=== PATIENT | female | born 1960 | race African-American/Black ===

== ENCOUNTER 2017-03-01 07:56 | Emergency (ER) | payer MEDICARE, MEDICAID ==
[~2017-03-01] VITALS: Ht 147.3 cm; Wt 82.0 kg
[~2017-03-01 07:56] MED LIST: ASPI-1159 PO; Benazepril Hcl PO; Benzocaine/Menth/Cetylpyrd Cl MM; COR3 PO; FURO-152 PO; LEVO500T2 PO; METF500T4 PO; P20 PO; PRED5TAB48 PO; SIMV20TA6 PO; SPIR25TA4 PO
[2017-03-01] MEDS ORDERED: KETOROLAC 30MG/ML VIAL IV STA (08:44)
[2017-03-01] MEDS ORDERED: SODIUM CHLORIDE 0.9% 1000ML BAG (SEPSIS BOLUS) IV ONE (08:45)
[2017-03-01 09:04] LABS: BASOPHILS % 0.7 % (0.0-2.0); EOSINOPHILS % 1.2 % (0.0-5.0); LYMPHOCYTES % 32.2 % (20.0-50.0); MEAN CORPUSCULAR HEMOGLOBIN 22.8 pg (28.0-32.0); MEAN CORPUSCULAR VOLUME 72.5 fL (81.0-99.0); MEAN PLATELET VOLUME 9.1 fl (7.4-10.4); MONOCYTES % 13.5 % (2.0-8.0); NEUTROPHILS % 52.4 % (40.0-76.0); PLATELET 156 x1000/uL (130-400); RED BLOOD CELL COUNT 4.83 mill/uL (4.2-5.4); RED CELL DISTRIBUTION WIDTH 15.4 % (11.6-14.6)
[2017-03-01 09:12] LABS: PROTHROMBIN TIME 10.2 sec (9.4-11.6)
[2017-03-01 09:23] LABS: CARBON DIOXIDE 27 mEq/L (21-32); CHLORIDE 107 mEq/L (98-107)
[2017-03-01 11:50] LABS: CLARITY URINE CLOUDY (CLEAR); COLOR URINE YELLOW (YELLOW); KETONES URINE TRACE (NEGATIVE); LEUKOCYTE ESTERASE URINE 1+ (NEGATIVE); NITRITE URINE NEGATIVE (NEGATIVE); OCCULT BLOOD URINE NEGATIVE (NEGATIVE); PH URINE 5.5 (4.5-8.0); PROTEIN URINE 2+ (NEGATIVE); SPECIFIC GRAVITY URINE 1.029 (1.005-1.030)
[2017-03-01] MEDS ORDERED: LEVOFLOXACIN 500MG PREMIX 100 ML IV ONE (12:30)
[2017-03-01 13:00] VITALS: BP 142/85
== END 2017-03-01 14:51 | disposition home or self-care (01) ==
LOC: ER 08:15
DX: J06.9 Acute upper respiratory infection, unspecified (principal); N39.0 Urinary tract infection, site not specified; J44.9 Chronic obstructive pulmonary disease, unspecified; I10 Essential (primary) hypertension; F41.9 Anxiety disorder, unspecified; E11.9 Type 2 diabetes mellitus without complications; Z79.82 Long term (current) use of aspirin
CPT/HCPCS: 36415; 71045; 80053; 81001; 83605; 85025; 85610; 87040; 87086; 93005; 96361; 96365; 96375; 99285; J1885; J1956; J7030

== ENCOUNTER 2018-11-29 13:33 | Inpatient (IN) | payer MEDICARE, MEDICAID ==
[~2018-11-29] VITALS: Ht 147.3 cm; Wt 52.6 kg
[~2018-11-29 13:33] MED LIST changes: -ASPI-1159 PO; +ASPI-1393 PO; +METF-414 PO; -METF500T4 PO; -SPIR25TA4 PO; +SPIR25TA6 PO
[2018-11-29] MEDS ORDERED: SODIUM CHLORIDE 0.9% 1,000 ML IV ONE (15:00)
[2018-11-29] MEDS ORDERED: KETOROLAC 15MG/ML VIAL IV ONE (15:00)
[2018-11-29 15:22] LABS: BASOPHILS % 0.7 % (0.0-2.0); EOSINOPHILS % 0.5 % (0.0-5.0); HEMATOCRIT. 41.9 % (36.0-48.0); HEMOGLOBIN. 13.3 g/dL (12.0-16.0); LYMPHOCYTES % 33.2 % (20.0-50.0); MEAN CORPUSCULAR HEMOGLOBIN 23.6 pg (28.0-32.0); MEAN CORPUSCULAR VOLUME 74.1 fL (81.0-99.0); NEUTROPHILS % 53.6 % (40.0-76.0); RED BLOOD CELL COUNT 5.66 mill/uL (4.2-5.4); RED CELL DISTRIBUTION WIDTH 16.2 % (11.6-14.6)
[2018-11-29 15:25] LABS: CHLORIDE 105 mEq/L (98-107)
[2018-11-29 15:45] LABS: CLARITY URINE CLOUDY (CLEAR); COLOR URINE DARK YELLOW (YELLOW); KETONES URINE TRACE (NEGATIVE); LEUKOCYTE ESTERASE URINE NEGATIVE (NEGATIVE); NITRITE URINE NEGATIVE (NEGATIVE); OCCULT BLOOD URINE NEGATIVE (NEGATIVE); PH URINE 5.5 (4.5-8.0); PROTEIN URINE 3+ (NEGATIVE); SPECIFIC GRAVITY URINE 1.034 (1.005-1.030)
[2018-11-29 15:46] LABS: MEAN PLATELET VOLUME 11.1 fl (7.4-10.4); PLATELET 125 x1000/uL (130-400)
[2018-11-29 17:00] VITALS: BP 124/72
[2018-11-29 17:31] VITALS: BP 124/72
[2018-11-29] MEDS ORDERED: INFLUENZA VIRUS VACCINE(AFLURIA) 0.5ML SYR IM ONE (18:30)
[2018-11-29] MEDS ORDERED: DOCUSATE SODIUM 100MG CAPSULE PO PRN (19:15)
[2018-11-29] MEDS ORDERED: NA PHOS,M-B/NA PHOS,DI-BA ENEMA 118ML PR PRN (19:15)
[2018-11-29] MEDS ORDERED: CLONIDINE 0.1MG TABLET PO PRN (19:15)
[2018-11-29] MEDS ORDERED: ACETAMINOPHEN 650MG/20.3ML UDC GT PRN (19:15)
[2018-11-29] MEDS ORDERED: MAGNESIUM/ALUMINUM HYDROXIDE/SIMETHICONE 30ML UDC PO PRN (19:15)
[2018-11-29] MEDS ORDERED: IPRATROPIUM/ALBUTEROL 0.5-3(2.5)MG/3ML NEB HHN PRN (19:15)
[2018-11-29] MEDS ORDERED: ONDANSETRON HCL 4MG/2ML INJ IV PRN (19:15)
[2018-11-29] MEDS ORDERED: HYDROCODONE/ACETAMINOPHEN 5/325MG TABLET PO PRN (19:15)
[2018-11-29] MEDS ORDERED: DIPHENHYDRAMINE 50MG/ML VIAL IV PRN (19:15)
[2018-11-29] MEDS ORDERED: ACETAMINOPHEN 650MG SUPP PR PRN (19:15)
[2018-11-29] MEDS ORDERED: ACETAMINOPHEN 325MG TABLET PO PRN (19:15)
[2018-11-29 20:00] VITALS: BP 125/73
[2018-11-29] MEDS ORDERED: DEXTROSE 50% WATER 50ML SYRINGE IV PRN (20:45)
[2018-11-29] MEDS: INSULIN LISPRO 100 UNITS/ML SUBCUT SCH (20:57)
[2018-11-29] MEDS: BLOOD SUGAR DIAGNOSTIC STRIP TEST SCH (20:57)
[2018-11-29] MEDS: ENOXAPARIN 40MG/0.4ML SYR SUBCUT SCH (20:58)
[2018-11-29] MEDS: SODIUM CHLORIDE 0.9% INJ 3ML FLUSH IVF SCH (21:04)
[2018-11-29] MEDS: ALBUTEROL (0.083%) 2.5MG/3ML NEB HHN SCH (22:10)
[2018-11-29] MEDS: GUAIFENESIN 200MG/10ML SUGAR FREE UDC PO PRN (23:19)
[2018-11-29 23:36] VITALS: BP 96/55
[2018-11-30 00:15] LABS: *BARBITURATES SCREEN URINE NEGATIVE (NEGATIVE); *BENZODIAZEPINES SCREEN URINE NEGATIVE (NEGATIVE); *COCAINE SCREEN URINE NEGATIVE (NEGATIVE); METHADONE URINE SCREEN NEGATIVE (NEGATIVE); OPIATES URINE SCREEN NEGATIVE (NEGATIVE); PHENCYCLIDINE URINE SCREEN NEGATIVE (NEGATIVE)
[2018-11-30 00:16] LABS: *AMPHETAMINES SCREEN URINE NEGATIVE (NEGATIVE); CANNABINOID URINE SCREEN NEGATIVE (NEGATIVE)
[2018-11-30 00:47] LABS: CREATINE KINASE 288 IU/L (26-192)
[2018-11-30 00:48] LABS: CREATINE KINASE MB FRACTION 1.5 ng/mL (0.5-3.6)
[2018-11-30] MEDS: ALBUTEROL (0.083%) 2.5MG/3ML NEB HHN SCH ×4 (02:40→21:25)
[2018-11-30 04:01] VITALS: BP 111/61
[2018-11-30] MEDS: SODIUM CHLORIDE 0.9% INJ 3ML FLUSH IVF SCH ×3 (06:30→22:46)
[2018-11-30] MEDS: INSULIN LISPRO 100 UNITS/ML SUBCUT SCH ×4 (06:41→20:36)
[2018-11-30] MEDS: BLOOD SUGAR DIAGNOSTIC STRIP TEST SCH ×4 (06:41→20:24)
[2018-11-30 06:49] LABS: HEMATOCRIT. 37.4 % (36.0-48.0); HEMOGLOBIN. 12.1 g/dL (12.0-16.0); MEAN CORPUSCULAR HEMOGLOBIN 23.9 pg (28.0-32.0); MEAN CORPUSCULAR VOLUME 73.9 fL (81.0-99.0); MEAN PLATELET VOLUME 11.9 fl (7.4-10.4); PLATELET 113 x1000/uL (130-400); RED BLOOD CELL COUNT 5.06 mill/uL (4.2-5.4); RED CELL DISTRIBUTION WIDTH 15.5 % (11.6-14.6)
[2018-11-30 08:07] VITALS: BP 116/65
[2018-11-30] MEDS: GUAIFENESIN 200MG/10ML SUGAR FREE UDC PO PRN ×3 (08:09→22:52)
[2018-11-30] MEDS: FUROSEMIDE 40MG/4ML VIAL IV SCH (08:10)
[2018-11-30] MEDS: METFORMIN HCL 500MG TABLET PO SCH (08:10)
[2018-11-30 08:34] LABS: CHLORIDE 106 mEq/L (98-107)
[2018-11-30 08:56] LABS: LDL CHOLESTEROL 83 mg/dL (5-100)
[2018-11-30 08:58] LABS: CREATINE KINASE 248 IU/L (26-192); HDL CHOLESTEROL 30 mg/dL (40-59)
[2018-11-30 09:01] LABS: CREATINE KINASE MB FRACTION 1.5 ng/mL (0.5-3.6)
[2018-11-30 11:03] LABS: PLATELET ESTIMATE DECREASED
[2018-11-30 12:00] VITALS: BP 124/72
[2018-11-30] MEDS: SPIRONOLACTONE 25MG TABLET PO SCH (13:56)
[2018-11-30] MEDS: BENAZEPRIL 5MG TABLET PO SCH (15:00)
[2018-11-30] MEDS: METHYLPREDNISOLONE SOD SUCC 40 MG/ML VIAL IV SCH ×2 (15:01→22:46)
[2018-11-30 16:00] VITALS: BP_SYST 123; BP_SYST 136; BP_DIAS 73; BP_DIAS 77; BP_DIAS 83
[2018-11-30] MEDS: BENZONATATE 100MG CAPSULE PO PRN (18:22)
[2018-11-30 20:00] VITALS: BP_SYST 113; BP_SYST 115; BP_SYST 118; BP_DIAS 72; BP_DIAS 75; BP_DIAS 77
[2018-11-30] MEDS: AZITHROMYCIN 500 MG TABLET PO SCH (20:25)
[2018-11-30] MEDS: CARVEDILOL 3.125 MG TABLET PO SCH (20:26)
[2018-11-30] MEDS: ENOXAPARIN 40MG/0.4ML SYR SUBCUT SCH (20:32)
[2018-11-30] MEDS: BUDESONIDE 0.5MG/2ML NEB HHN SCH (21:24)
[2018-12-01] VITALS: BP 98/61
[2018-12-01] MEDS: ALBUTEROL (0.083%) 2.5MG/3ML NEB HHN SCH ×4 (03:07→22:17)
[2018-12-01 04:00] VITALS: BP 118/76
[2018-12-01] MEDS: BLOOD SUGAR DIAGNOSTIC STRIP TEST SCH ×4 (06:31→20:49)
[2018-12-01] MEDS: BENZONATATE 100MG CAPSULE PO PRN ×2 (06:39→15:21)
[2018-12-01] MEDS: METHYLPREDNISOLONE SOD SUCC 40 MG/ML VIAL IV SCH ×3 (06:39→23:28)
[2018-12-01] MEDS: INSULIN LISPRO 100 UNITS/ML SUBCUT SCH ×4 (06:48→21:27)
[2018-12-01] MEDS: SODIUM CHLORIDE 0.9% INJ 3ML FLUSH IVF SCH ×3 (06:49→21:29)
[2018-12-01 08:00] VITALS: BP 136/77
[2018-12-01] MEDS: BUDESONIDE 0.5MG/2ML NEB HHN SCH ×2 (09:04→22:16)
[2018-12-01] MEDS: FUROSEMIDE 40MG/4ML VIAL IV SCH ×2 (09:36→21:28)
[2018-12-01] MEDS: GUAIFENESIN 200MG/10ML SUGAR FREE UDC PO PRN ×2 (09:36→18:03)
[2018-12-01] MEDS: AZITHROMYCIN 500 MG TABLET PO SCH (09:37)
[2018-12-01] MEDS: BENAZEPRIL 5MG TABLET PO SCH (09:37)
[2018-12-01] MEDS: SPIRONOLACTONE 25MG TABLET PO SCH (09:37)
[2018-12-01] MEDS: CARVEDILOL 3.125 MG TABLET PO SCH ×2 (09:37→21:28)
[2018-12-01] MEDS: METFORMIN HCL 500MG TABLET PO SCH (09:38)
[2018-12-01] MEDS ORDERED: FUROSEMIDE 40MG/4ML VIAL IV SCH (11:30)
[2018-12-01 12:00] VITALS: BP_SYST 131; BP_SYST 133; BP_DIAS 76; BP_DIAS 79; BP_DIAS 82
[2018-12-01] MEDS: POTASSIUM CHLORIDE 20MEQ TABLET SR PO SCH ×2 (12:26→18:03)
[2018-12-01 16:00] VITALS: BP 120/75
[2018-12-01 20:00] VITALS: BP_SYST 110; BP_SYST 115; BP_SYST 116; BP_DIAS 61; BP_DIAS 69; BP_DIAS 74
[2018-12-01] MEDS: ENOXAPARIN 40MG/0.4ML SYR SUBCUT SCH (21:27)
[2018-12-02] VITALS: BP 109/63
[2018-12-02] MEDS: ALBUTEROL (0.083%) 2.5MG/3ML NEB HHN SCH ×2 (03:43→08:35)
[2018-12-02 04:00] VITALS: BP 108/62
[2018-12-02] MEDS: BLOOD SUGAR DIAGNOSTIC STRIP TEST SCH ×2 (05:50→11:51)
[2018-12-02 05:54] LABS: BASOPHILS % 0.2 % (0.0-2.0); HEMATOCRIT. 41.2 % (36.0-48.0); HEMOGLOBIN. 13.1 g/dL (12.0-16.0); LYMPHOCYTES % 8.6 % (20.0-50.0); MEAN CORPUSCULAR HEMOGLOBIN 23.3 pg (28.0-32.0); MEAN CORPUSCULAR VOLUME 73.3 fL (81.0-99.0); MONOCYTES % 6.2 % (2.0-8.0); PLATELET 167 x1000/uL (130-400); RED BLOOD CELL COUNT 5.63 mill/uL (4.2-5.4); RED CELL DISTRIBUTION WIDTH 15.5 % (11.6-14.6)
[2018-12-02 06:08] LABS: CHLORIDE 104 mEq/L (98-107)
[2018-12-02] MEDS: SODIUM CHLORIDE 0.9% INJ 3ML FLUSH IVF SCH (06:17)
[2018-12-02] MEDS: METHYLPREDNISOLONE SOD SUCC 40 MG/ML VIAL IV SCH (06:17)
[2018-12-02] MEDS: INSULIN LISPRO 100 UNITS/ML SUBCUT SCH ×2 (06:17→12:03)
[2018-12-02 08:00] VITALS: BP 106/68
[2018-12-02] MEDS: FUROSEMIDE 40MG/4ML VIAL IV SCH (08:29)
[2018-12-02] MEDS: METFORMIN HCL 500MG TABLET PO SCH (08:29)
[2018-12-02] MEDS: AZITHROMYCIN 500 MG TABLET PO SCH (08:29)
[2018-12-02] MEDS: POTASSIUM CHLORIDE 20MEQ TABLET SR PO SCH (08:29)
[2018-12-02] MEDS: GUAIFENESIN 200MG/10ML SUGAR FREE UDC PO PRN (08:29)
[2018-12-02] MEDS: CARVEDILOL 3.125 MG TABLET PO SCH (08:30)
[2018-12-02] MEDS: BUDESONIDE 0.5MG/2ML NEB HHN SCH (08:35)
[2018-12-02] MEDS ORDERED: BENAZEPRIL 5MG TABLET PO SCH (09:00)
[2018-12-02] MEDS ORDERED: MAGNESIUM OXIDE 400MG TABLET PO NR (09:30)
[2018-12-02 12:00] VITALS: BP 101/65
[2018-12-02] MEDS: BENZONATATE 100MG CAPSULE PO PRN (12:03)
[2018-12-02 12:49] VITALS: BP 101/65
== END 2018-12-02 14:45 | disposition home or self-care (01) | DRG 291 ==
LOC: ER 13:33 → 5WST 15:40 → ENRESERV 16:13
PROVIDERS: ADMIT Family Medicine; ATTEND Family Medicine
DX: I11.0 Hypertensive heart disease with heart failure (principal); J96.00 Acute respiratory failure, unspecified whether with hypoxia or hypercapnia; J44.0 Chronic obstructive pulmonary disease with (acute) lower respiratory infection; R65.10 Systemic inflammatory response syndrome (SIRS) of non-infectious origin without acute organ dysfunction; M62.82 Rhabdomyolysis; G90.8 Other disorders of autonomic nervous system; I50.23 Acute on chronic systolic (congestive) heart failure; I42.0 Dilated cardiomyopathy; E11.9 Type 2 diabetes mellitus without complications; E83.42 Hypomagnesemia; I08.3 Combined rheumatic disorders of mitral, aortic and tricuspid valves; I27.29 Other secondary pulmonary hypertension; J20.9 Acute bronchitis, unspecified; Z79.899 Other long term (current) drug therapy; Z82.49 Family history of ischemic heart disease and other diseases of the circulatory system; Z95.810 Presence of automatic (implantable) cardiac defibrillator
CPT/HCPCS: 36415; 71045; 80048; 80061; 80305; 81003; 82550; 82553; 82962; 83735; 83880; 84484; 87804; 90686; 93005; 93306; 94640; 96374; 99285; J1650; J1815; J1885; J1940; J2920; J7611; J7626

== ENCOUNTER 2018-12-16 17:42 | Emergency (ER) | payer MEDICARE, MEDICAID ==
[~2018-12-16] VITALS: Ht 149.9 cm; Wt 57.5 kg
[~2018-12-16 17:42] MED LIST changes: -LEVO500T2 PO; -P20 PO; -PRED5TAB48 PO
[2018-12-16 18:59] LABS: BASOPHILS % 1.8 % (0.0-2.0); HEMATOCRIT. 41.9 % (36.0-48.0); HEMOGLOBIN. 13.6 g/dL (12.0-16.0); MEAN CORPUSCULAR HEMOGLOBIN 23.8 pg (28.0-32.0); MEAN CORPUSCULAR VOLUME 73.8 fL (81.0-99.0); MEAN PLATELET VOLUME 10.2 fl (7.4-10.4); MONOCYTES % 10.1 % (2.0-8.0); NEUTROPHILS % 42.1 % (40.0-76.0); PLATELET 172 x1000/uL (130-400); RED BLOOD CELL COUNT 5.69 mill/uL (4.2-5.4); RED CELL DISTRIBUTION WIDTH 15.6 % (11.6-14.6)
[2018-12-16 19:04] LABS: CHLORIDE 97 mEq/L (98-107)
[2018-12-16] MEDS ORDERED: ONDANSETRON HCL 4MG/2ML INJ IV NR (21:00)
[2018-12-16 23:42] VITALS: BP 121/75
== END 2018-12-16 23:43 | disposition home or self-care (01) ==
LOC: ER 17:42
DX: R11.2 Nausea with vomiting, unspecified (principal); K59.00 Constipation, unspecified; R53.1 Weakness; F41.9 Anxiety disorder, unspecified; J44.9 Chronic obstructive pulmonary disease, unspecified; E11.9 Type 2 diabetes mellitus without complications; I11.9 Hypertensive heart disease without heart failure; Z95.0 Presence of cardiac pacemaker; Z79.899 Other long term (current) drug therapy; Z86.79 Personal history of other diseases of the circulatory system; Z79.82 Long term (current) use of aspirin; Z95.810 Presence of automatic (implantable) cardiac defibrillator
CPT/HCPCS: 36415; 71045; 80053; 83880; 84484; 85025; 93005; 96374; 99284; J2405

== ENCOUNTER 2019-01-31 04:59 | Emergency (ER) | payer MEDICARE, MEDICAID ==
[~2019-01-31] VITALS: Ht 147.3 cm; Wt 61.0 kg
[2019-01-31 06:59] LABS: BASOPHILS % 0.8 % (0.0-2.0); EOSINOPHILS % 1.7 % (0.0-5.0); HEMATOCRIT. 38.9 % (36.0-48.0); HEMOGLOBIN. 12.4 g/dL (12.0-16.0); LYMPHOCYTES % 40.1 % (20.0-50.0); MEAN CORPUSCULAR HEMOGLOBIN 23.5 pg (28.0-32.0); MEAN CORPUSCULAR VOLUME 73.6 fL (81.0-99.0); MEAN PLATELET VOLUME 9.6 fl (7.4-10.4); MONOCYTES % 7.7 % (2.0-8.0); NEUTROPHILS % 49.7 % (40.0-76.0); PLATELET 161 x1000/uL (130-400); RED BLOOD CELL COUNT 5.28 mill/uL (4.2-5.4); RED CELL DISTRIBUTION WIDTH 18.2 % (11.6-14.6)
[2019-01-31 07:06] LABS: CHLORIDE 110 mEq/L (98-107)
[2019-01-31] MEDS ORDERED: KETOROLAC 30MG/ML VIAL IV ONE (07:15)
[2019-01-31] MEDS ORDERED: OXYCODONE HCL/ACETAMINOPHEN 5/325MG TABLET PO ONE (07:15)
[2019-01-31 07:45] VITALS: BP 130/70
== END 2019-01-31 09:10 | disposition home or self-care (01) ==
LOC: ER 04:59
DX: M79.604 Pain in right leg (principal); I11.0 Hypertensive heart disease with heart failure; I50.9 Heart failure, unspecified; E11.9 Type 2 diabetes mellitus without complications; E78.00 Pure hypercholesterolemia, unspecified; I69.354 Hemiplegia and hemiparesis following cerebral infarction affecting left non-dominant side; Z95.0 Presence of cardiac pacemaker; Z79.82 Long term (current) use of aspirin; Z87.01 Personal history of pneumonia (recurrent); Z87.891 Personal history of nicotine dependence
CPT/HCPCS: 36415; 73562; 80053; 85025; 85610; 93005; 93971; 96374; 99284; J1885

== ENCOUNTER 2019-07-01 19:09 | Inpatient (IN) | payer MEDICARE, MEDICAID ==
[~2019-07-01] VITALS: Ht 160 cm; Wt 60.1 kg
[~2019-07-01 19:09] MED LIST changes: -ASPI-1393 PO; +ASPI-1497 PO; +SIMV-43 PO; -SIMV20TA6 PO
[2019-07-01 21:04] LABS: BASOPHILS % 0.8 % (0.0-2.0); EOSINOPHILS % 2.9 % (0.0-5.0); HEMATOCRIT. 38.5 % (36.0-48.0); HEMOGLOBIN. 12.5 g/dL (12.0-16.0); LYMPHOCYTES % 34.3 % (20.0-50.0); MEAN CORPUSCULAR HEMOGLOBIN 24.3 pg (28.0-32.0); MEAN CORPUSCULAR VOLUME 75.1 fL (81.0-99.0); MEAN PLATELET VOLUME 11.3 fl (7.4-10.4); MONOCYTES % 7.3 % (2.0-8.0); NEUTROPHILS % 54.7 % (40.0-76.0); PLATELET 161 x1000/uL (130-400); RED BLOOD CELL COUNT 5.13 mill/uL (4.2-5.4); RED CELL DISTRIBUTION WIDTH 15.9 % (11.6-14.6)
[2019-07-01 21:10] LABS: CHLORIDE 114 mEq/L (98-107)
[2019-07-01] MEDS ORDERED: ASPIRIN 81MG TABLET PO ONE (21:45)
[2019-07-01] MEDS ORDERED: FUROSEMIDE 40MG/4ML VIAL IV ONE (21:45)
[2019-07-02 10:00] VITALS: BP 140/77
[2019-07-02] MEDS ORDERED: FUROSEMIDE 20MG TABLET PO SCH (11:30)
[2019-07-02] MEDS ORDERED: ATORVASTATIN CALCIUM 10MG TABLET PO SCH (11:30)
[2019-07-02] MEDS ORDERED: THROAT LOZENGES-BENZOCAINE/MENTH/CETYLPYRD CL LOZENGES MM PRN (11:30)
[2019-07-02 12:00] VITALS: BP 141/77
[2019-07-02] MEDS: FUROSEMIDE 40MG/4ML VIAL IV SCH (12:00)
[2019-07-02] MEDS ORDERED: ONDANSETRON HCL 4MG/2ML INJ IV PRN (12:00)
[2019-07-02] MEDS ORDERED: DEXTROSE 50% WATER 50ML SYRINGE IV PRN (12:00)
[2019-07-02] MEDS: INSULIN LISPRO 100 UNITS/ML SUBCUT SCH ×3 (12:10→21:50)
[2019-07-02] MEDS: ASPIRIN 81MG EC TABLET PO SCH (12:17)
[2019-07-02] MEDS: METFORMIN HCL 500MG TABLET PO SCH (12:17)
[2019-07-02] MEDS: SPIRONOLACTONE 25MG TABLET PO SCH (12:18)
[2019-07-02] MEDS: BENAZEPRIL 5MG TABLET PO SCH (13:00)
[2019-07-02 13:17] VITALS: BP 141/77
[2019-07-02] MEDS ORDERED: POTASSIUM CHLORIDE 20MEQ TABLET SR PO NR (14:45)
[2019-07-02] MEDS ORDERED: FUROSEMIDE 40MG/4ML VIAL IVP NR (14:45)
[2019-07-02] MEDS: ACETAMINOPHEN 325MG TABLET PO PRN (15:22)
[2019-07-02 16:00] VITALS: BP 141/66
[2019-07-02] MEDS: BLOOD SUGAR DIAGNOSTIC STRIP TEST SCH ×2 (16:49→20:32)
[2019-07-02 20:00] VITALS: BP 126/64
[2019-07-02] MEDS: HEPARIN 5000 UNITS/ML VIAL SUBCUT SCH (21:44)
[2019-07-02] MEDS: CARVEDILOL 3.125 MG TABLET PO SCH (21:45)
[2019-07-03] VITALS: BP 108/54
[2019-07-03 04:30] VITALS: BP 109/58
[2019-07-03] MEDS: BLOOD SUGAR DIAGNOSTIC STRIP TEST SCH ×4 (05:30→21:32)
[2019-07-03] MEDS: INSULIN LISPRO 100 UNITS/ML SUBCUT SCH ×4 (05:38→21:31)
[2019-07-03 08:00] VITALS: BP 121/79
[2019-07-03] MEDS: HEPARIN 5000 UNITS/ML VIAL SUBCUT SCH ×2 (08:29→21:31)
[2019-07-03] MEDS: FUROSEMIDE 40MG/4ML VIAL IV SCH (08:29)
[2019-07-03] MEDS: METFORMIN HCL 500MG TABLET PO SCH (08:30)
[2019-07-03] MEDS: BENAZEPRIL 5MG TABLET PO SCH (08:30)
[2019-07-03] MEDS: ASPIRIN 81MG EC TABLET PO SCH (08:30)
[2019-07-03] MEDS: CARVEDILOL 3.125 MG TABLET PO SCH (08:30)
[2019-07-03] MEDS: SPIRONOLACTONE 25MG TABLET PO SCH (08:30)
[2019-07-03 10:25] LABS: BASOPHILS % 0.9 % (0.0-2.0); HEMATOCRIT. 43.9 % (36.0-48.0); HEMOGLOBIN. 14.3 g/dL (12.0-16.0); LYMPHOCYTES % 33.6 % (20.0-50.0); MEAN CORPUSCULAR HEMOGLOBIN 24.5 pg (28.0-32.0); MEAN CORPUSCULAR VOLUME 75.2 fL (81.0-99.0); MEAN PLATELET VOLUME 10.9 fl (7.4-10.4); MONOCYTES % 7.2 % (2.0-8.0); NEUTROPHILS % 55.3 % (40.0-76.0); PLATELET 154 x1000/uL (130-400); RED BLOOD CELL COUNT 5.83 mill/uL (4.2-5.4); RED CELL DISTRIBUTION WIDTH 15.5 % (11.6-14.6)
[2019-07-03 10:40] LABS: CHLORIDE 100 mEq/L (98-107)
[2019-07-03 12:00] VITALS: BP 118/72
[2019-07-03] MEDS: POTASSIUM CHLORIDE 20MEQ TABLET SR PO SCH (14:08)
[2019-07-03 16:00] VITALS: BP 107/59
[2019-07-03 20:00] VITALS: BP 111/70
[2019-07-03] MEDS: ACETAMINOPHEN 325MG TABLET PO PRN (20:05)
[2019-07-03] MEDS: CARVEDILOL 6.25 MG TABLET PO SCH (21:32)
[2019-07-04 04:00] VITALS: BP 102/65
[2019-07-04] MEDS: BLOOD SUGAR DIAGNOSTIC STRIP TEST SCH ×4 (06:46→20:21)
[2019-07-04 08:00] VITALS: BP 107/69
[2019-07-04] MEDS: POTASSIUM CHLORIDE 20MEQ TABLET SR PO SCH (08:08)
[2019-07-04] MEDS: FUROSEMIDE 40MG/4ML VIAL IV SCH (08:08)
[2019-07-04] MEDS: INSULIN LISPRO 100 UNITS/ML SUBCUT SCH ×4 (08:08→20:22)
[2019-07-04] MEDS: METFORMIN HCL 500MG TABLET PO SCH (08:09)
[2019-07-04] MEDS: ASPIRIN 81MG EC TABLET PO SCH (08:09)
[2019-07-04] MEDS: HEPARIN 5000 UNITS/ML VIAL SUBCUT SCH ×2 (08:09→20:48)
[2019-07-04] MEDS: SPIRONOLACTONE 25MG TABLET PO SCH (08:18)
[2019-07-04] MEDS: CARVEDILOL 6.25 MG TABLET PO SCH ×2 (08:19→20:51)
[2019-07-04] MEDS: BENAZEPRIL 5MG TABLET PO SCH (08:19)
[2019-07-04 08:54] LABS: BASOPHILS % 1.1 % (0.0-2.0); EOSINOPHILS % 3.1 % (0.0-5.0); HEMATOCRIT. 41.9 % (36.0-48.0); HEMOGLOBIN. 13.5 g/dL (12.0-16.0); LYMPHOCYTES % 48.5 % (20.0-50.0); MEAN CORPUSCULAR HEMOGLOBIN 24.2 pg (28.0-32.0); MEAN CORPUSCULAR VOLUME 75.2 fL (81.0-99.0); MEAN PLATELET VOLUME 11.3 fl (7.4-10.4); NEUTROPHILS % 39.3 % (40.0-76.0); PLATELET 153 x1000/uL (130-400); RED BLOOD CELL COUNT 5.57 mill/uL (4.2-5.4); RED CELL DISTRIBUTION WIDTH 15.8 % (11.6-14.6)
[2019-07-04 09:13] LABS: CHLORIDE 101 mEq/L (98-107)
[2019-07-04 12:00] VITALS: BP 98/62
[2019-07-04] MEDS ORDERED: IPRATROPIUM/ALBUTEROL 0.5-3(2.5)MG/3ML NEB HHN SCH (14:00)
[2019-07-04] MEDS ORDERED: IPRATROPIUM/ALBUTEROL 0.5-3(2.5)MG/3ML NEB HHN PRN (15:45)
[2019-07-04 16:00] VITALS: BP 92/54
[2019-07-04 20:00] VITALS: BP 100/58
[2019-07-04] MEDS: ATORVASTATIN CALCIUM 40MG TABLET PO SCH (20:47)
[2019-07-04] MEDS: ACETAMINOPHEN 325MG TABLET PO PRN (20:47)
[2019-07-05] VITALS: BP 95/58
[2019-07-05 04:00] VITALS: BP 112/62
[2019-07-05] MEDS: BLOOD SUGAR DIAGNOSTIC STRIP TEST SCH ×4 (05:51→20:23)
[2019-07-05] MEDS: INSULIN LISPRO 100 UNITS/ML SUBCUT SCH ×4 (06:09→20:23)
[2019-07-05 08:22] VITALS: BP 126/81
[2019-07-05] MEDS: SPIRONOLACTONE 25MG TABLET PO SCH (09:17)
[2019-07-05] MEDS: METFORMIN HCL 500MG TABLET PO SCH (09:17)
[2019-07-05] MEDS: HEPARIN 5000 UNITS/ML VIAL SUBCUT SCH ×2 (09:18→20:23)
[2019-07-05] MEDS: ASPIRIN 81MG EC TABLET PO SCH (09:18)
[2019-07-05] MEDS: POTASSIUM CHLORIDE 20MEQ TABLET SR PO SCH (09:18)
[2019-07-05] MEDS: FUROSEMIDE 40MG/4ML VIAL IV SCH (09:18)
[2019-07-05] MEDS: CARVEDILOL 6.25 MG TABLET PO SCH ×2 (09:18→20:24)
[2019-07-05] MEDS: BENAZEPRIL 5MG TABLET PO SCH (09:19)
[2019-07-05 11:25] LABS: BASOPHILS % 0.7 % (0.0-2.0); EOSINOPHILS % 2.8 % (0.0-5.0); HEMATOCRIT. 44.8 % (36.0-48.0); HEMOGLOBIN. 14.4 g/dL (12.0-16.0); LYMPHOCYTES % 39.7 % (20.0-50.0); MEAN CORPUSCULAR VOLUME 74.4 fL (81.0-99.0); MEAN PLATELET VOLUME 10.3 fl (7.4-10.4); MONOCYTES % 9.8 % (2.0-8.0); PLATELET 179 x1000/uL (130-400); RED BLOOD CELL COUNT 6.01 mill/uL (4.2-5.4); RED CELL DISTRIBUTION WIDTH 15.9 % (11.6-14.6)
[2019-07-05 11:37] LABS: CHLORIDE 100 mEq/L (98-107)
[2019-07-05] MEDS ORDERED: FURO-152 PO (14:14)
[2019-07-05] MEDS ORDERED: COR6 PO (14:14)
[2019-07-05 16:00] VITALS: BP 121/72
[2019-07-05 20:00] VITALS: BP 99/49
[2019-07-05] MEDS: ATORVASTATIN CALCIUM 40MG TABLET PO SCH (20:23)
[2019-07-06] VITALS: BP 100/62
[2019-07-06 04:00] VITALS: BP 94/56
[2019-07-06 04:10] LABS: HIV SCREEN 4G Non Reactive (Non Reactive)
[2019-07-06] MEDS: BLOOD SUGAR DIAGNOSTIC STRIP TEST SCH ×2 (06:51→11:29)
[2019-07-06] MEDS: INSULIN LISPRO 100 UNITS/ML SUBCUT SCH ×2 (06:52→12:15)
[2019-07-06 07:26] LABS: CHLORIDE 104 mEq/L (98-107)
[2019-07-06 07:43] LABS: BASOPHILS % 0.3 % (0.0-2.0); EOSINOPHILS % 2.8 % (0.0-5.0); HEMATOCRIT. 43.6 % (36.0-48.0); HEMOGLOBIN. 14.3 g/dL (12.0-16.0); LYMPHOCYTES % 44.9 % (20.0-50.0); MEAN CORPUSCULAR HEMOGLOBIN 24.8 pg (28.0-32.0); MEAN CORPUSCULAR VOLUME 75.7 fL (81.0-99.0); MEAN PLATELET VOLUME 10.8 fl (7.4-10.4); MONOCYTES % 12.7 % (2.0-8.0); NEUTROPHILS % 39.3 % (40.0-76.0); PLATELET 176 x1000/uL (130-400); RED BLOOD CELL COUNT 5.76 mill/uL (4.2-5.4); RED CELL DISTRIBUTION WIDTH 15.7 % (11.6-14.6)
[2019-07-06 08:00] VITALS: BP 112/61
[2019-07-06] MEDS: BENAZEPRIL 5MG TABLET PO SCH (09:12)
[2019-07-06] MEDS: SPIRONOLACTONE 25MG TABLET PO SCH (09:12)
[2019-07-06] MEDS: POTASSIUM CHLORIDE 20MEQ TABLET SR PO SCH (09:12)
[2019-07-06] MEDS: ASPIRIN 81MG EC TABLET PO SCH (09:13)
[2019-07-06] MEDS: CARVEDILOL 6.25 MG TABLET PO SCH (09:13)
[2019-07-06] MEDS: METFORMIN HCL 500MG TABLET PO SCH (09:13)
[2019-07-06] MEDS: FUROSEMIDE 40MG/4ML VIAL IV SCH (09:13)
[2019-07-06] MEDS: HEPARIN 5000 UNITS/ML VIAL SUBCUT SCH (09:13)
[2019-07-06 11:33] VITALS: BP 112/61
== END 2019-07-06 12:13 | disposition home or self-care (01) | DRG 871 ==
LOC: ER 19:09 → 7EST 22:36 → ENRESERV 07-02 08:20 → ER 07-02 09:25 → CANBEDREQ 07-02 10:27 → 5WST 07-03 23:43
PROVIDERS: ADMIT Internal Medicine; ATTEND Internal Medicine
DX: A41.9 Sepsis, unspecified organism (principal); J96.00 Acute respiratory failure, unspecified whether with hypoxia or hypercapnia; I50.23 Acute on chronic systolic (congestive) heart failure; J44.0 Chronic obstructive pulmonary disease with (acute) lower respiratory infection; E46 Unspecified protein-calorie malnutrition; I42.8 Other cardiomyopathies; J06.9 Acute upper respiratory infection, unspecified; I11.0 Hypertensive heart disease with heart failure; E11.65 Type 2 diabetes mellitus with hyperglycemia; E78.5 Hyperlipidemia, unspecified; F17.200 Nicotine dependence, unspecified, uncomplicated; E78.00 Pure hypercholesterolemia, unspecified; R74.0 Nonspecific elevation of levels of transaminase and lactic acid dehydrogenase [LDH]; I25.10 Atherosclerotic heart disease of native coronary artery without angina pectoris; I27.20 Pulmonary hypertension, unspecified; Z86.73 Personal history of transient ischemic attack (TIA), and cerebral infarction without residual deficits; Z95.810 Presence of automatic (implantable) cardiac defibrillator; Z79.84 Long term (current) use of oral hypoglycemic drugs; Z79.899 Other long term (current) drug therapy; Z79.82 Long term (current) use of aspirin; Z03.818 Encounter for observation for suspected exposure to other biological agents ruled out
CPT/HCPCS: 36415; 71045; 78580; 80053; 82962; 83036; 83735; 83880; 84484; 85025; 87389; 87635; 93005; 93306; 97162; 99285; J1644; J1815; J1940; U0003-CS

== ENCOUNTER 2020-12-16 10:30 | Inpatient (IN) | payer MEDICARE, MEDICAID ==
[~2020-12-16] VITALS: Ht 147.3 cm; Wt 65.8 kg
[~2020-12-16 10:30] MED LIST changes: -COR3 PO; +COR6 PO
[2020-12-16] MEDS ORDERED: IPRATROPIUM BROMIDE (0.02%) 0.5MG/2.5ML NEB HHN STA (11:14)
[2020-12-16] MEDS ORDERED: ACETAMINOPHEN 325MG TABLET PO STA (11:14)
[2020-12-16] MEDS ORDERED: PREDNISONE 20MG TABLET PO STA (11:14)
[2020-12-16] MEDS ORDERED: ASPIRIN 81MG TABLET PO ONE (11:15)
[2020-12-16] MEDS: ALBUTEROL (0.083%) 2.5MG/3ML NEB HHN SCH ×3 (11:35→12:16)
[2020-12-16 11:49] LABS: CHLORIDE 107 mEq/L (98-107)
[2020-12-16 11:51] LABS: BASOPHILS % 0.8 % (0.0-2.0); EOSINOPHILS % 3.3 % (0.0-5.0); HEMATOCRIT. 41.5 % (36.0-48.0); HEMOGLOBIN. 13.1 g/dL (12.0-16.0); LYMPHOCYTES % 26.4 % (20.0-50.0); MEAN CORPUSCULAR HEMOGLOBIN 23.8 pg (28.0-32.0); MEAN CORPUSCULAR VOLUME 75.5 fL (81.0-99.0); MEAN PLATELET VOLUME 10.6 fl (7.4-10.4); MONOCYTES % 14.1 % (2.0-8.0); NEUTROPHILS % 55.4 % (40.0-76.0); PLATELET 141 x1000/uL (130-400); RED BLOOD CELL COUNT 5.49 mill/uL (4.2-5.4); RED CELL DISTRIBUTION WIDTH 15.6 % (11.6-14.6)
[2020-12-16] MEDS ORDERED: FUROSEMIDE 40MG/4ML VIAL IVP ONE (12:45)
[2020-12-16 14:23] LABS: BG BASE EXCESS 0.5 mmol/L (-2.0-2.0); BG CARBOXYHEMOGLOBIN 0.7 % (0.5-1.5); BG DEOXYHEMOGLOBIN 9.3 % (0.0-5.0); BG FRACTION INSPIRED OXYGEN 28; BG HCO3 ACT 26.1 mmol/L (22.0-26.0); BG METHEMOGLOBIN 0.1 % (0.0-1.5); BG OXYGEN SATURATION 90.6 % (92.0-98.5); BG OXYHEMOGLOBIN 89.9 % (94.0-97.0); BG PCO2 45.5 mmHg (35.0-45.0); BG PH 7.376 (7.350-7.450); BG PO2 62.2 mmHg (75.0-100.0); BG SAMPLE SITE RIGHT BRACHIAL; BG VENT MODE NASAL CANNULA
[2020-12-16] MEDS ORDERED: DOCUSATE SODIUM 100MG CAPSULE PO PRN (16:45)
[2020-12-16] MEDS ORDERED: ZOLPIDEM TARTRATE 5MG TABLET PO PRN (16:45)
[2020-12-16] MEDS ORDERED: IPRATROPIUM/ALBUTEROL 0.5-3(2.5)MG/3ML NEB NEB PRN (16:45)
[2020-12-16] MEDS ORDERED: CLONIDINE 0.1MG TABLET PO PRN (16:45)
[2020-12-16] MEDS ORDERED: NITROGLYCERIN 0.4MG TABLET SL SL PRN (16:45)
[2020-12-16] MEDS ORDERED: ACETAMINOPHEN 325MG TABLET PO PRN ×2 (16:45)
[2020-12-16] MEDS ORDERED: ONDANSETRON HCL 4MG/2ML INJ IV PRN (16:45)
[2020-12-16] MEDS ORDERED: MAGNESIUM/ALUMINUM HYDROXIDE/SIMETHICONE 30ML UDC PO PRN (16:45)
[2020-12-16] MEDS ORDERED: KETOROLAC 15MG/ML VIAL IV PRN (16:45)
[2020-12-16] MEDS ORDERED: DEXTROSE 50% WATER 50ML SYRINGE IV PRN (17:00)
[2020-12-16] MEDS ORDERED: LEVOFLOXACIN 500MG PREMIX 100 ML IV SCH (17:00)
[2020-12-16] MEDS: METHYLPREDNISOLONE SOD SUCC 125 MG/2 ML VIAL IV SCH ×2 (17:36→22:26)
[2020-12-16] MEDS: ENOXAPARIN 40MG/0.4ML SYR SUBCUT SCH (19:00)
[2020-12-16] MEDS: INSULIN LISPRO 100 UNITS/ML SUBCUT SCH ×2 (19:02→21:50)
[2020-12-16] MEDS: BLOOD SUGAR DIAGNOSTIC STRIP TEST SCH ×2 (19:02→21:47)
[2020-12-16 20:00] VITALS: BP 119/75
[2020-12-16 20:20] VITALS: BP 119/75
[2020-12-16] MEDS: IPRATROPIUM/ALBUTEROL 0.5-3(2.5)MG/3ML NEB HHN SCH (20:45)
[2020-12-16] MEDS: FUROSEMIDE 40MG/4ML VIAL IVP SCH (21:50)
[2020-12-16] MEDS: ASCORBIC ACID 500 MG TABLET PO SCH (21:50)
[2020-12-16] MEDS: FAMOTIDINE 20MG TABLET PO SCH (21:50)
[2020-12-16] MEDS: SPIRONOLACTONE 25MG TABLET PO SCH (21:50)
[2020-12-17] VITALS (8 sets, daily range): BP systolic 106–139; BP diastolic 51–83
[2020-12-17 02:04] LABS: CREATINE KINASE MB FRACTION 2.6 ng/mL (0.5-3.6)
[2020-12-17] MEDS: IPRATROPIUM/ALBUTEROL 0.5-3(2.5)MG/3ML NEB HHN SCH ×2 (02:35→20:51)
[2020-12-17] MEDS: METHYLPREDNISOLONE SOD SUCC 125 MG/2 ML VIAL IV SCH ×3 (05:50→20:55)
[2020-12-17] MEDS: BLOOD SUGAR DIAGNOSTIC STRIP TEST SCH ×4 (06:31→20:52)
[2020-12-17 07:25] LABS: HEMATOCRIT. 43.7 % (36.0-48.0); HEMOGLOBIN. 13.7 g/dL (12.0-16.0); LYMPHOCYTES % 20.8 % (20.0-50.0); MEAN CORPUSCULAR HEMOGLOBIN 23.7 pg (28.0-32.0); MEAN CORPUSCULAR VOLUME 75.5 fL (81.0-99.0); MEAN PLATELET VOLUME 10.5 fl (7.4-10.4); MONOCYTES % 3.5 % (2.0-8.0); NEUTROPHILS % 75.7 % (40.0-76.0); PLATELET 183 x1000/uL (130-400); RED BLOOD CELL COUNT 5.78 mill/uL (4.2-5.4); RED CELL DISTRIBUTION WIDTH 15.5 % (11.6-14.6)
[2020-12-17 07:27] LABS: CHLORIDE 101 mEq/L (98-107)
[2020-12-17 07:38] LABS: PHOSPHORUS 2.5 mg/dL (2.5-4.9)
[2020-12-17 07:43] LABS: CREATINE KINASE MB FRACTION 3.3 ng/mL (0.5-3.6)
[2020-12-17] MEDS: ASPIRIN 325MG EC TABLET PO SCH (09:16)
[2020-12-17] MEDS: FUROSEMIDE 40MG/4ML VIAL IVP SCH ×2 (09:16→20:52)
[2020-12-17] MEDS: ZINC SULFATE 220 MG ( 50 ) CAPSULE PO SCH (09:17)
[2020-12-17] MEDS: ASCORBIC ACID 500 MG TABLET PO SCH ×2 (09:17→20:51)
[2020-12-17] MEDS: CHOLECALCIFEROL (D3) 1000 UNIT TABLET PO SCH (09:17)
[2020-12-17] MEDS: FAMOTIDINE 20MG TABLET PO SCH ×2 (09:17→20:51)
[2020-12-17] MEDS: SPIRONOLACTONE 25MG TABLET PO SCH ×2 (09:17→20:51)
[2020-12-17] MEDS: INSULIN LISPRO 100 UNITS/ML SUBCUT SCH ×4 (09:22→20:53)
[2020-12-17] MEDS: ENOXAPARIN 40MG/0.4ML SYR SUBCUT SCH (18:08)
[2020-12-17] MEDS: LEVOFLOXACIN 250MG PREMIX 50 ML IV SCH (18:09)
[2020-12-18 04:00] VITALS: BP 123/68
[2020-12-18] MEDS: IPRATROPIUM/ALBUTEROL 0.5-3(2.5)MG/3ML NEB HHN SCH ×5 (04:38→20:30)
[2020-12-18] MEDS: METHYLPREDNISOLONE SOD SUCC 125 MG/2 ML VIAL IV SCH ×3 (05:09→21:33)
[2020-12-18] MEDS: BLOOD SUGAR DIAGNOSTIC STRIP TEST SCH ×4 (06:45→21:21)
[2020-12-18 08:26] VITALS: BP 116/73
[2020-12-18 08:51] LABS: *AMPHETAMINES SCREEN URINE NEGATIVE (NEGATIVE); *BARBITURATES SCREEN URINE NEGATIVE (NEGATIVE); *BENZODIAZEPINES SCREEN URINE NEGATIVE (NEGATIVE); *COCAINE SCREEN URINE NEGATIVE (NEGATIVE); METHADONE URINE SCREEN NEGATIVE (NEGATIVE); OPIATES URINE SCREEN NEGATIVE (NEGATIVE)
[2020-12-18 08:52] LABS: CANNABINOID URINE SCREEN NEGATIVE (NEGATIVE); PHENCYCLIDINE URINE SCREEN NEGATIVE (NEGATIVE)
[2020-12-18] MEDS: ASCORBIC ACID 500 MG TABLET PO SCH ×2 (09:03→21:33)
[2020-12-18] MEDS: FAMOTIDINE 20MG TABLET PO SCH ×2 (09:03→21:33)
[2020-12-18] MEDS: GUAIFENESIN 200MG/10ML SUGAR FREE UDC PO PRN ×2 (09:03→18:20)
[2020-12-18] MEDS: FUROSEMIDE 40MG/4ML VIAL IVP SCH ×2 (09:03→21:33)
[2020-12-18] MEDS: SPIRONOLACTONE 25MG TABLET PO SCH ×2 (09:05→21:33)
[2020-12-18] MEDS: ZINC SULFATE 220 MG ( 50 ) CAPSULE PO SCH (09:06)
[2020-12-18] MEDS: CHOLECALCIFEROL (D3) 1000 UNIT TABLET PO SCH (09:06)
[2020-12-18] MEDS: ASPIRIN 325MG EC TABLET PO SCH (09:06)
[2020-12-18] MEDS: INSULIN LISPRO 100 UNITS/ML SUBCUT SCH ×4 (09:07→21:35)
[2020-12-18 12:36] VITALS: BP 104/63
[2020-12-18 16:08] VITALS: BP 98/50
[2020-12-18] MEDS: ENOXAPARIN 40MG/0.4ML SYR SUBCUT SCH (18:00)
[2020-12-18] MEDS: LEVOFLOXACIN 250MG PREMIX 50 ML IV SCH (18:09)
[2020-12-18 20:00] VITALS: BP 101/58
[2020-12-19] VITALS: BP 114/60
[2020-12-19] MEDS: IPRATROPIUM/ALBUTEROL 0.5-3(2.5)MG/3ML NEB HHN SCH ×6 (00:30→20:44)
[2020-12-19 04:00] VITALS: BP 99/60
[2020-12-19] MEDS: METHYLPREDNISOLONE SOD SUCC 125 MG/2 ML VIAL IV SCH ×3 (06:09→21:48)
[2020-12-19] MEDS: BLOOD SUGAR DIAGNOSTIC STRIP TEST SCH ×4 (06:31→21:45)
[2020-12-19 08:00] VITALS: BP 110/60
[2020-12-19] MEDS: ZINC SULFATE 220 MG ( 50 ) CAPSULE PO SCH (08:26)
[2020-12-19] MEDS: FUROSEMIDE 40MG/4ML VIAL IVP SCH ×2 (08:26→11:00)
[2020-12-19] MEDS: ASCORBIC ACID 500 MG TABLET PO SCH ×2 (08:26→21:49)
[2020-12-19] MEDS: SPIRONOLACTONE 25MG TABLET PO SCH ×2 (08:26→21:49)
[2020-12-19] MEDS: CHOLECALCIFEROL (D3) 1000 UNIT TABLET PO SCH (08:26)
[2020-12-19] MEDS: FAMOTIDINE 20MG TABLET PO SCH ×2 (08:26→21:49)
[2020-12-19] MEDS: ASPIRIN 325MG EC TABLET PO SCH (08:26)
[2020-12-19] MEDS: GUAIFENESIN 200MG/10ML SUGAR FREE UDC PO PRN ×4 (08:26→21:48)
[2020-12-19] MEDS: INSULIN LISPRO 100 UNITS/ML SUBCUT SCH ×4 (08:27→21:54)
[2020-12-19 12:00] VITALS: BP 102/57
[2020-12-19] MEDS: CARVEDILOL 3.125 MG TABLET PO SCH ×2 (12:01→20:44)
[2020-12-19 12:32] LABS: PHOSPHORUS 2.8 mg/dL (2.5-4.9)
[2020-12-19 16:00] VITALS: BP 109/72
[2020-12-19] MEDS: LEVOFLOXACIN 250MG PREMIX 50 ML IV SCH (17:08)
[2020-12-19] MEDS: ENOXAPARIN 40MG/0.4ML SYR SUBCUT SCH (17:08)
[2020-12-19 20:00] VITALS: BP 109/53
[2020-12-20] VITALS: BP 99/67
[2020-12-20] MEDS: IPRATROPIUM/ALBUTEROL 0.5-3(2.5)MG/3ML NEB HHN SCH ×4 (00:48→11:43)
[2020-12-20 04:00] VITALS: BP 115/59
[2020-12-20] MEDS: GUAIFENESIN 200MG/10ML SUGAR FREE UDC PO PRN (05:10)
[2020-12-20] MEDS: METHYLPREDNISOLONE SOD SUCC 125 MG/2 ML VIAL IV SCH (05:10)
[2020-12-20] MEDS: BLOOD SUGAR DIAGNOSTIC STRIP TEST SCH ×2 (06:06→11:56)
[2020-12-20] MEDS: INSULIN LISPRO 100 UNITS/ML SUBCUT SCH ×2 (07:50→12:31)
[2020-12-20 08:05] VITALS: BP 124/88
[2020-12-20 08:05] LABS: PHOSPHORUS 3.3 mg/dL (2.5-4.9)
[2020-12-20] MEDS: SPIRONOLACTONE 25MG TABLET PO SCH (08:28)
[2020-12-20] MEDS: CARVEDILOL 3.125 MG TABLET PO SCH (08:28)
[2020-12-20] MEDS: ZINC SULFATE 220 MG ( 50 ) CAPSULE PO SCH (08:29)
[2020-12-20] MEDS: FUROSEMIDE 40MG/4ML VIAL IVP SCH (08:29)
[2020-12-20] MEDS: CHOLECALCIFEROL (D3) 1000 UNIT TABLET PO SCH (08:29)
[2020-12-20] MEDS: FAMOTIDINE 20MG TABLET PO SCH (08:29)
[2020-12-20] MEDS: ASCORBIC ACID 500 MG TABLET PO SCH (08:29)
[2020-12-20] MEDS ORDERED: ASPIRIN 81MG EC TABLET PO SCH (09:00)
[2020-12-20 10:57] VITALS: BP 124/80
[2020-12-20 12:30] VITALS: BP 121/67
== END 2020-12-20 13:45 | disposition home or self-care (01) | DRG 291 ==
LOC: ER 10:30 → 6WST 15:24 → EDBEDREQ 15:26 → EDBEDREQTM 15:26 → SUPCPDRO 16:37 → ENRESERV 19:26
PROVIDERS: ADMIT Internal Medicine; ATTEND Internal Medicine
DX: I13.0 Hypertensive heart and chronic kidney disease with heart failure and stage 1 through stage 4 chronic kidney disease, or unspecified chronic kidney disease (principal); J96.01 Acute respiratory failure with hypoxia; J96.02 Acute respiratory failure with hypercapnia; I50.43 Acute on chronic combined systolic (congestive) and diastolic (congestive) heart failure; J44.1 Chronic obstructive pulmonary disease with (acute) exacerbation; Z20.822 Contact with and (suspected) exposure to COVID-19; I42.9 Cardiomyopathy, unspecified; E11.22 Type 2 diabetes mellitus with diabetic chronic kidney disease; N18.9 Chronic kidney disease, unspecified; I42.0 Dilated cardiomyopathy; E78.5 Hyperlipidemia, unspecified; Z95.810 Presence of automatic (implantable) cardiac defibrillator; Z79.4 Long term (current) use of insulin
CPT/HCPCS: 36415; 36600; 71045; 80048; 80053; 80061; 80305; 82375; 82553; 82607; 82728; 82746; 82805; 82962; 83036; 83540; 83550; 83615; 83735; 83880; 84100; 84145; 84484; 85025; 85379; 87426; 87804; 93005; 93306; 93970; 94640; 99285; C9803; J1650; J1815; J1940; J1956; J2930; J7512; U0003; U0005

== ENCOUNTER 2021-02-27 07:33 | Emergency (ER) | payer MEDICAID, MEDICARE ==
[~2021-02-27] VITALS: Ht 147.3 cm; Wt 68.0 kg
[2021-02-27] MEDS ORDERED: ACET-2708 MT (08:17)
[2021-02-27 08:25] VITALS: BP 126/78
[2021-02-27] MEDS ORDERED: ACETAMINOPHEN 325MG TABLET PO ONE (08:30)
== END 2021-02-27 08:35 | disposition home or self-care (01) ==
LOC: ER 08:05
DX: U07.1 COVID-19 (principal); I25.10 Atherosclerotic heart disease of native coronary artery without angina pectoris; I50.9 Heart failure, unspecified; Z95.0 Presence of cardiac pacemaker; Z87.891 Personal history of nicotine dependence; Z79.82 Long term (current) use of aspirin
CPT/HCPCS: 99283; C9803; U0003; U0005

== ENCOUNTER 2021-02-27 08:54 | Emergency (ER) | payer MEDICAID ==
[~2021-02-27 08:54] MED LIST changes: +ACET-2708 MT
== END 2021-02-27 09:46 | disposition left against medical advice (07) ==
LOC: ER 08:58
DX: Z53.21 Procedure and treatment not carried out due to patient leaving prior to being seen by health care provider (principal); I25.10 Atherosclerotic heart disease of native coronary artery without angina pectoris; I50.9 Heart failure, unspecified; I51.9 Heart disease, unspecified

== ENCOUNTER 2022-09-23 13:33 | Emergency (ER) | payer MEDICAID ==
[~2022-09-23] VITALS: Ht 147.3 cm; Wt 61.0 kg
[~2022-09-23 13:33] MED LIST changes: +AZIT500T3 MT; -Benazepril Hcl PO; -Benzocaine/Menth/Cetylpyrd Cl MM
[2022-09-23 14:55] LABS: CHLORIDE 110 mEq/L (98-107); INDEX HEMOLYSI 1 (1-3); INDEX ICTERIC 1 (1-4); INDEX LIPEMIC 1 (1-3); POTASSIUM 3.8 mEq/L (3.5-5.1); SODIUM 141 mEq/L (136-145)
[2022-09-23 14:56] LABS: BASOPHILS % 0.5 % (0.0-2.0); DIFFERENTIAL COMMENT 0; EOSINOPHILS % 2.1 % (0.0-5.0); HEMATOCRIT. 39.3 % (36.0-48.0); HEMOGLOBIN. 12.7 g/dL (12.0-16.0); LYMPHOCYTES % 31.3 % (20.0-50.0); MEAN CORPUSCULAR HEMOGLOBIN 23.9 pg (28.0-32.0); MEAN CORPUSCULAR HGB CONC 32.2 g/dL (31.0-37.0); MEAN CORPUSCULAR VOLUME 74.1 fL (81.0-99.0); MEAN PLATELET VOLUME 9.7 fl (7.4-10.4); MONOCYTES % 7.1 % (2.0-8.0); PLATELET 168 x1000/uL (130-400); RED BLOOD CELL COUNT 5.31 mill/uL (4.2-5.4); RED CELL DISTRIBUTION WIDTH 16.6 % (11.6-14.6); WHITE BLOOD COUNT 5.7 x1000/uL (4.5-11.0)
[2022-09-23 15:06] LABS: ALANINE AMINOTRANSFERASE 21 IU/L (13-61); ALBUMIN 3.5 g/dL (3.4-5.0); ASPARTATE AMINOTRANSFERASE 11 IU/L (15-37); BILIRUBIN TOTAL 0.4 mg/dL (0.1-1.0); CALCIUM 9.6 mg/dL (8.5-10.1); CARBON DIOXIDE 31 mEq/L (21-32); CREATININE 1.1 mg/dL (0.6-1.3); GLUCOSE 134 mg/dL (70-105); NT PRO B-TYPE NATRIURETIC PEP 723 pg/mL (5-125); PROTEIN TOTAL 7.6 g/dL (6.0-8.3); TROPONIN I HIGH SENSITIVITY 11 ng/L (<54); UREA NITROGEN BLOOD 19 mg/dL (7-21)
[2022-09-23 20:22] LABS: CLARITY URINE CLEAR (CLEAR); COLOR URINE YELLOW (YELLOW); GLUCOSE URINE 2+ (NEGATIVE); KETONES URINE NEGATIVE (NEGATIVE); LEUKOCYTE ESTERASE URINE NEGATIVE (NEGATIVE); NITRITE URINE NEGATIVE (NEGATIVE); OCCULT BLOOD URINE NEGATIVE (NEGATIVE); PH URINE 5.5 (4.5-8.0); PROTEIN URINE 3+ (NEGATIVE); SPECIFIC GRAVITY URINE 1.026 (1.005-1.030)
[2022-09-23 20:36] LABS: BACTERIA URINE 1+; RBC URINE 0-2 /hpf (0-2); SQUAMOUS EPITHELIAL CELL URINE 1+ /lpf (RARE/1+)
[2022-09-23 20:37] LABS: WBC URINE 0-2 /hpf (0-2)
[2022-09-23] MEDS ORDERED: IPRATROPIUM/ALBUTEROL 0.5-3(2.5)MG/3ML NEB HHN ONE (21:15)
[2022-09-23] MEDS ORDERED: PREDNISONE 20MG TABLET PO ONE (21:15)
[2022-09-23 21:23] VITALS: PULSE 69; RESP 24; O2SAT 99
[2022-09-23 22:08] VITALS: BP 176/84; PULSE 70; RESP 18; TEMP 98.4
== END 2022-09-23 22:09 | disposition home or self-care (01) ==
LOC: ER 13:33
DX: R53.1 Weakness (principal); I11.0 Hypertensive heart disease with heart failure; I50.9 Heart failure, unspecified; E11.9 Type 2 diabetes mellitus without complications; I25.10 Atherosclerotic heart disease of native coronary artery without angina pectoris; Z95.0 Presence of cardiac pacemaker
CPT/HCPCS: 80053; 81003; 83880; 85025; 84484; 36415; 71045; 94640; 93005; 99285; J7512; Z7610 ×3; 94664